=== PATIENT | male | born 2000 | race Caucasian/White ===

== ENCOUNTER 2020-12-29 12:21 | Emergency (ER) | payer OTHER ==
[2020-12-29] MEDS ORDERED: Lidocaine 1% w/Epinephrine 1:100K 20 ML VIAL ONE ×2 (15:08)
[2020-12-29] MEDS ORDERED: Ketorolac Tromethamine 30 MG/ML VIAL ONE (16:10)
== END 2020-12-29 16:53 | disposition home or self-care (01) ==
LOC: ERS 12:21
DX: L05.01 Pilonidal cyst with abscess (principal); R00.0 Tachycardia, unspecified
CPT/HCPCS: 10080; 87070; 87205; 96372; J1885